=== PATIENT | female | born 1975 | race Caucasian/White ===

== ENCOUNTER 2020-06-13 14:05 | Outpatient (CLI) | payer OTHER, SELFPAY ==
[2020-06-13 18:29] LABS: Basophils Absolute Auto 0.1 K/mm3 (0.0-0.1); Basophils Percent Auto 0.7 % (0.2-1.2); Eosinophils Absolute Auto 0.4 K/mm3 (0-0.3); Eosinophils Percent Auto 4.4 % (0-4.4); Hematocrit 34.1 % (37.0-47.0); Hemoglobin 10.2 g/dL (12.0-15.0); Immature Granulocyte Absolute 0.03 K/mm3 (0.00-0.031); Immature Granulocyte Percent A 0.3 % (0-0.5); Lymphocytes Absolute Auto 1.78 K/mm3 (0.9-3.2); Lymphocytes Percent Auto 20.2 % (18.3-44.2); Mean Corpuscular HGB Conc 29.9 g/dl (32-36); Mean Corpuscular Hemoglobin 21.1 pg (26-34); Mean Corpuscular Volume 70.6 fl (80-100); Mean Platelet Volume 9.9 fl (7.4-10.4); Monocytes Absolute Auto 0.7 K/mm3 (0.1-0.6); Monocytes Percent Auto 7.6 % (2.6-8.5); Neutrophils Absolute Auto 5.9 K/mm3 (1.3-6.7); Neutrophils Percent Auto 66.8 % (45.5-73.1); Platelet Count Result 434 k/mm3 (150-375); Red Blood Count 4.83 M/mm3 (4.2-5.4); Red Cell Distribution Width 19.7 % (11.5-14.5); White Blood Count 8.8 K/mm3 (4.5-10.0)
== END 2020-06-13 14:06 | disposition home or self-care (01) ==
PROVIDERS: PCP Nurse Practitioner Family; Visit Provider Obstetrics & Gynecology
DX: N92.0 Excessive and frequent menstruation with regular cycle (principal)
CPT/HCPCS: 36415; 84443; 85025

== ENCOUNTER → 2020-06-30 09:52 | Outpatient (CLI) | payer OTHER, SELFPAY ==
--- NOTE | ~2020-06-30 | US_ITS ---
EXAMINATION: US pelvic complete w TV DATE: 06/30/2020 10:21 INDICATION: Excessive frequent menstruation Comparison:No prior studies for comparison. TECHNIQUE: Multiple transabdominal and endovaginal sonographic images of the pelvis performed. FINDINGS: The uterus measures 11.8 x 8 x 8.8 cm. There are uterine fibroids, largest discrete mass me asuring 9 x 7.2 x 7.5 cm The endometrial complex measures 1 cm. The right ovary measures 4.9 x 3.7 x 4.1 cm. Left ovary not visualized. There is a right ovarian cyst measuring 3.5 cm maximum dimension. There is no free fluid in the pelvis. There are no abnormal masses seen on either side. IMPRESSION: 1. Enlarged fibroid uterus, largest discrete fibroid measuring up to 9 cm maximum dimension. 2: Right ovarian cyst measuring up to 3.5 cm. Reviewed, dictated and finalized at location A. B NURSING TECH IMPRESSION: 1. Enlarged fibroid uterus, largest discrete fibroid measuring up to 9 cm maxim um dimension. 2: Right ovarian cyst measuring up to 3.5 cm.
== END ==
PROVIDERS: Visit Provider Obstetrics & Gynecology
DX: N92.0 Excessive and frequent menstruation with regular cycle (principal); N83.201 Unspecified ovarian cyst, right side
CPT/HCPCS: 76830; 76856

== ENCOUNTER → 2020-09-07 14:56 | Outpatient (CLI) | payer OTHER, SELFPAY ==
--- NOTE | ~2020-09-07 | US_ITS ---
EXAMINATION: US pelvic complete w TV DATE: 09/07/2020 15:29 INDICATION: Ovarian cyst TECHNIQUE: Multiple transabdominal and endovaginal sonographic images of the pelvis were obtained. COMPARISON: 06/30/2020 FINDINGS: The uterus measures 11.7 x 8.6 x 7.6 cm. An approximately 5.4 x 4.1 x 5.1 cm hypoechoic are a of the uterine fundus may reflect an intramural fibroid. There are hypoechoic striations radiating throughout the myometrium. The endometrial complex measures 6 mm. The right ovary measures 2.3 x 2.2 x 2.4 cm. The left ovary measures 3.2 x 1.5 x 3.5 cm. No ovarian cysts are identified. There is stanford l vascular flow in the ovaries. There is no free fluid in the pelvis. IMPRESSION: 1. No ovarian cysts identified. 2. Hypoechoic striations radiating throughout the myometrium which is a nonspecific appearance but ca n be seen in the setting of adenomyosis. Reviewed, dictated and finalized at location A. IMPRESSION: 1. No ovarian cysts identified. 2. Hypoechoic striations radiating throughout the myometrium which is a nonspec ific appearance but can be seen in the setting of adenomyosis.
== END ==
PROVIDERS: Visit Provider Obstetrics & Gynecology
DX: N83.209 Unspecified ovarian cyst, unspecified side (principal)
CPT/HCPCS: 76830; 76856

== ENCOUNTER → 2020-10-17 15:09 | Outpatient (CLI) | payer OTHER, SELFPAY ==
--- NOTE | ~2020-10-17 | MM_ITS ---
EXAMINATION: MM screening donnie BI w luis miguel HISTORY: Screening TECHNIQUE: Craniocaudal and mediolateral oblique 3-D tomosynthesis images were obtained and synthetic 2-D images were generated. CAD analysis was submitted and interpreted. COMPARISON: 11/14/2017 BREAST PARENCHYMAL COMPOSITION: There are scattered areas of fibroglandular density. FINDINGS: There is no evidence of suspicious mass, calcification, or architectural distortion to sugg est malignancy in either breast. There has been no suspicious interval change. IMPRESSION: 1. No mammographic evidence of malignancy. 2. Recommend routine screening mammography in one year. BI-RADS Category 1: Negative Reviewed, dictated and finalized at location A.
== END ==
PROVIDERS: PCP Nurse Practitioner Family; Visit Provider Obstetrics & Gynecology
DX: Z12.31 Encounter for screening mammogram for malignant neoplasm of breast (principal)
CPT/HCPCS: 77063; 77067